=== PATIENT | male | born 1950 | race Caucasian/White ===

== ENCOUNTER 2017-11-11 09:51 | Emergency (ER) | payer OTHER ==
[~2017-11-11] VITALS: Ht 165.1 cm; Wt 68.2 kg
[2017-11-11 09:54] VITALS: TEMP 98.4
[2017-11-11] MEDS ORDERED: LOTENSIN20 MG PO (10:40)
[2017-11-11] MEDS ORDERED: PLAVIX 75MG TAB75 MG PO (10:41)
[2017-11-11] MEDS ORDERED: SYNTHROID0.05 MG/TA PO (10:41)
[2017-11-11] MEDS ORDERED: ZANTAC 150MG T150 MG PO (10:42)
[2017-11-11] MEDS ORDERED: FLOMAX 0.40.4 MG/CAP PO (10:42)
[2017-11-11] MEDS ORDERED: ZOCOR 10MG10 MG PO (10:43)
[2017-11-11] MEDS ORDERED: ATIVAN 0.50.5 MG/TAB PO (10:43)
[2017-11-11] MEDS ORDERED: SINGULAIR 110 MG/TAB (10:44)
[2017-11-11 10:45] LABS: BASO # 0.1 (0.0-0.2); EOS # 0.2 (0.0-0.7); EOS % 2.3 % (0-4.0); GRAN # 6.4 (1.4-6.5); GRAN % 69.1 % (42.2-75.2); HEMATOCRIT 46.8 % (42.0-52.0); HEMOGLOBIN 15.5 g/dl (13.5-18.0); LYMPH # 1.7 (1.2-3.4); LYMPH % 18.5 % (20.0-51.0); MEAN CELL VOLUME 87 fl (80.0-100.0); MEAN CORPUSCULAR HEMOGLOBIN 29 pg (27.0-31.0); MEAN CORPUSCULAR HGB CONC 33 g/dl (33.0-37.0); MEAN PLATELET VOLUME 9.6 fl (7.4-10.4); MONO # 0.8 (0.1-0.6); MONO % 8.5 % (1.7-9.3); PLATELET COUNT 220 K/mm3 (130-400); RED BLOOD COUNT 5.41 M/mm3 (4.20-5.60); REDCELL DISTRIBUTION WIDTH-CV 13.7 % (11.5-14.5)
[2017-11-11] MEDS ORDERED: ZYRTEC 10MG10 MG PO (10:45)
[2017-11-11] MEDS ORDERED: PULMICORT0.5 MG/2 M IH (10:46)
[2017-11-11 10:51] LABS: PROTHROMBIN TIME 11.3 SECONDS (9.7-12.8)
[2017-11-11 11:03] LABS: ALANINE AMINOTRANSFERASE 33 U/L (21-72); ALBUMIN 4.2 gm/dL (3.5-5.0); ALKALINE PHOSPHATASE 70 U/L (50-136); ANION GAP 10 mmol/L (7-16); AST,SGOT 30 U/L (15-37); BILIRUBIN,TOTAL 0.7 mg/dL (0.0-1.0); BLOOD UREA NITROGEN 14 mg/dL (9-20); CALCIUM 9.1 mg/dL (8.4-10.2); CARBON DIOXIDE 27 mmol/L (22-30); CHLORIDE 100 mmol/L (98-107); CREATININE, serum 0.96 mg/dL (0.66-1.25); GLUCOSE 103 mg/dL (74-106); SODIUM 137 mmol/L (137-145); TOTAL PROTEIN 7.2 gm/dL (6.4-8.2)
[2017-11-11 11:13] LABS: TROPONIN-I < 0.012 ng/mL (0.000-0.034)
[2017-11-11 14:30] VITALS: BP 116/70; PULSE 97
== END 2017-11-11 14:33 | disposition home or self-care (01) ==
LOC: COL.ER 09:51
PROVIDERS: Emergency Medicine
DX: R07.89 Other chest pain (principal); R42 Dizziness and giddiness; I10 Essential (primary) hypertension; E78.5 Hyperlipidemia, unspecified; K21.9 Gastro-esophageal reflux disease without esophagitis; Z86.73 Personal history of transient ischemic attack (TIA), and cerebral infarction without residual deficits; Z79.02 Long term (current) use of antithrombotics/antiplatelets; Z79.52 Long term (current) use of systemic steroids; Z98.890 Other specified postprocedural states
CPT/HCPCS: J2270; J2765

== ENCOUNTER 2020-01-21 08:58 | Inpatient (IN) | payer MEDICARE, OTHER ==
[~2020-01-21] VITALS: Ht 165.1 cm; Wt 61.0 kg
[~2020-01-21 08:58] MED LIST: 00186-0370-20; ADVIL 200MG TA200 MG PO; ASPIRIN; ATIVAN 0.50.5 MG/TAB PO; BLOOD PRESSURE MED; FLOMAX 0.40.4 MG/CAP PO; FLONASE NASAL S16 GM NS; LEVOTHYROXIN0.025 MG PO; LEVOXYL0.05 MG PO; LISINOPRIL20 MG PO; LOTENSIN20 MG PO; NORCO 325 MG-51 TAB PO; PLAVIX 75MG TAB75 MG PO; PREDNISONE20 MG PO; PRILOSEC 20MG20 MG PO; PULMICORT0.5 MG/2 M IH; SINGULAIR 110 MG/TAB; SYNTHROID0.05 MG/TA PO; TERAZOSIN5 MG PO; THYROID MED; ZANTAC 150MG T150 MG PO; ZOCOR 10MG10 MG PO; ZYRTEC 10MG10 MG PO; [UNRECOGNIZED DRUG - OTHER]
[2020-01-25] VITALS (301 sets, daily range): BP systolic 118–138; BP diastolic 63–76; PULSE 77–108; TEMP 98.7–99.1; O2SAT 87–100
[2020-01-25] MEDS ORDERED: VITAMIN D31000 I1 PO (06:19)
[2020-01-25] MEDS ORDERED: PLAVIX 75MG TAB75 MG PO (06:19)
[2020-01-25] MEDS ORDERED: 00186-0372-20 IH (06:19)
[2020-01-25] MEDS ORDERED: NEURONTIN300 MG/CAP PO (06:20)
[2020-01-25] MEDS ORDERED: SYNTHROID0.05 MG/TA PO (06:20)
[2020-01-25] MEDS ORDERED: PEPCID 20MG TAB20 MG PO (06:20)
[2020-01-25] MEDS ORDERED: ZOCOR 10MG10 MG PO (06:21)
[2020-01-25] MEDS ORDERED: FLOMAX 0.40.4 MG/CAP PO (06:21)
[2020-01-25] MEDS ORDERED: SINGULAIR 110 MG/TAB PO (06:21)
--- NOTE | 2020-01-25 06:31 | NUR ---
Patient arrives to [facility] via wheelchair. He is alert and oriented. He uses a walker and a RLE prosthesis to ambulate. Procedure is confirmed. He denies any questions and verbalizes understanding. He wears glasses and partial dentures (upper and lower)- all are placed in cases in patient's belongings bags. Patient states he was told by Dr. Copeland to stop taking his Plavix at his appointment on 01/20/2020. Notified Laci Osborne CRNA of stop date of Plavix and he states that he is aware. Also notified Laci Osborne CRNA that patient took his home dose of pepcid this AM at home and the EMAR dose was held. Notified Dr. Min Morales' PA of patient's last dose taken of Plavix as well. Patient's breath sounds are clear bilaterally to auscultation. Clear S1S2 heart tones heard. patient is tachycardic, rate 106 which the patient states is normal for him. +2 radial pulses bilaterally. PERRLA +2 pupils bilaterally. Patient has numbness/burning in the LLE. The LLE is red. CHG scrub is completed on the LLE as ordered.
--- NOTE | 2020-01-25 06:44 | NUR ---
Patient's belongings bags x2 (1 with clothes/dentures/cell phone/glasses, 1 with prosthesis) and personal walker taken to PACU with patient label on them at this time.
--- NOTE | 2020-01-25 21:00 | NUR ---
Patient to surgical room 323 at this time. He is alert and oriented and states he is at a tolerable pain level. His left leg is covered in a plaster cast and elevated on a pillow. Lung sounds are clear and heart sounds are normal/regular. He is not on any oxygen and levels on room air are 95%. Patient is oriented to room and call light and evening medications are administered. Will try to manage pain and promote sleep throughout the night. Will continue to monitor.
[2020-01-26 04:13] VITALS: BP 93/72; PULSE 98; TEMP 98.5
--- NOTE | 2020-01-26 05:22 | NUR ---
Patient has had a restful night. He woke up once with a pain level 7/10 and received oxycodone for this. There is drainage visible on the outside of the plaster cast. This drainage was marked with a marker and will be monitored. This RN elevated the extremity further to reduce drainage. Patient has remained afebrile and does not voice any other concerns beside pain management.
[2020-01-26 07:16] VITALS: BP 113/58; PULSE 105; TEMP 98.2
[2020-01-26] MEDS ORDERED: NORCO 325 MG-7.1 TAB PO (08:57)
--- NOTE | 2020-01-26 09:32 | NUR ---
Dolly Driver met with patient to discuss discharge planning. Patient lives in [place] with his , Nat (ph#[phone]) and sees Dr. Fisher for primary care. Patient obtains medications from [facility] pharmacy. Patient uses walkers and a tub transfer bench at home. Patient states he has a good set up and also has a prosthetic leg. Patient reports independence with ADLS and plans to return home upon discharge. Patient states his is his DPOA and that he has a living will. No needs identified at this time.
--- NOTE | 2020-01-26 11:35 | NUR ---
Pt discharged to home, assisted Pt to , escorted to entrance, assisted into vehicle. Pt left with spouse via private transportation.
--- NOTE | 2020-01-26 11:48 | NUR ---
First visit from the tobacco dipper. No needs right now.
== END 2020-01-26 11:37 | disposition home or self-care (01) | DRG 241 ==
LOC: ICU 01-25 05:27 → INPTSU 01-25 05:27 → SURG 01-25 07:30 → ICU 01-25 14:01 → SURG 01-25 21:15
PROVIDERS: ADMIT Orthopaedic Surgery
PROC: 0Y6J0Z1 Detachment at Left Lower Leg, High, Open Approach (ICD-10-PCS; principal; 2020-01-25 07:30)
DX: I99.8 Other disorder of circulatory system (principal); I73.9 Peripheral vascular disease, unspecified; J44.9 Chronic obstructive pulmonary disease, unspecified; I10 Essential (primary) hypertension; K21.9 Gastro-esophageal reflux disease without esophagitis; E03.9 Hypothyroidism, unspecified; Z86.73 Personal history of transient ischemic attack (TIA), and cerebral infarction without residual deficits
CPT/HCPCS: A9284; J0690; J1170; J1885; J2250; J2270; J2405; J2704; J3010; J7030; J7120

== ENCOUNTER 2021-06-07 10:29 | Outpatient (CLI) | payer MEDICARE, OTHER ==
[~2021-06-07] VITALS: Ht 165.1 cm; Wt 66.5 kg
[~2021-06-07 10:29] MED LIST changes: +00186-0372-20 IH; +NEURONTIN300 MG/CAP PO; +NORCO 325 MG-7.1 TAB PO; +PEPCID 20MG TAB20 MG PO; +SINGULAIR 110 MG/TAB PO; +VITAMIN D31000 I1 PO
[2021-06-07] MEDS ORDERED: PLAVIX 75MG TAB75 MG PO (11:10)
[2021-06-07] MEDS ORDERED: ATIVAN 0.50.5 MG/TAB PO (11:12)
[2021-06-07] MEDS ORDERED: LYRICA 150MG C150 MG PO (11:13)
[2021-06-07] MEDS ORDERED: PROTONIX 40MG T40 MG PO (11:13)
[2021-06-07 11:27] VITALS: BP 130/67; PULSE 98; TEMP 98.9
[2021-06-07] MEDS ORDERED: ZYRTEC 10MG10 MG PO (11:29)
[2021-06-07] MEDS ORDERED: FLOMAX 0.40.4 MG/CAP PO (11:29)
--- NOTE | 2021-06-07 14:27 | NUR ---
Pt waited for 2 hours post injection,denies signs or symtoms of reactions.Discharged via wheelchair by this nurse.
== END 2021-06-07 14:28 ==
LOC: EUO 10:29
DX: J45.50 Severe persistent asthma, uncomplicated (principal); Z79.899 Other long term (current) drug therapy
CPT/HCPCS: J2357

== ENCOUNTER 2021-06-21 12:47 | Outpatient (CLI) | payer MEDICARE, OTHER ==
[~2021-06-21] VITALS: Ht 165.1 cm; Wt 64.9 kg
[~2021-06-21 12:47] MED LIST changes: +LYRICA 150MG C150 MG PO; +PROTONIX 40MG T40 MG PO
[2021-06-21 13:11] VITALS: BP 132/70; PULSE 95; TEMP 98.6
== END 2021-06-21 13:30 | disposition home or self-care (01) ==
LOC: EUO 12:47
DX: J45.50 Severe persistent asthma, uncomplicated (principal); Z79.899 Other long term (current) drug therapy
CPT/HCPCS: J2357

== ENCOUNTER 2021-07-05 12:53 | Outpatient (CLI) | payer MEDICARE, OTHER ==
[2021-07-05 13:21] VITALS: BP 128/73; PULSE 95; TEMP 98.6
== END 2021-07-05 15:42 ==
LOC: EUO 12:53
DX: J45.50 Severe persistent asthma, uncomplicated (principal); Z79.899 Other long term (current) drug therapy
CPT/HCPCS: J2357

== ENCOUNTER 2021-07-19 12:39 | Outpatient (CLI) | payer MEDICARE, OTHER ==
[~2021-07-19] VITALS: Ht 165.1 cm; Wt 68.0 kg
[2021-07-19 13:16] VITALS: BP 128/73; PULSE 104; TEMP 98.5
== END 2021-07-19 13:59 | disposition home or self-care (01) ==
LOC: EUO 12:39
DX: J45.50 Severe persistent asthma, uncomplicated (principal); Z98.890 Other specified postprocedural states
CPT/HCPCS: J2357

== ENCOUNTER 2021-08-16 12:41 | Outpatient (CLI) | payer MEDICARE, OTHER ==
[~2021-08-16] VITALS: Ht 165.1 cm; Wt 68.8 kg
--- NOTE | 2021-08-16 12:53 | NUR ---
States that this is his last Xolair that Dr. Dean is going to change his medications and he doesnt think he will be back.
[2021-08-16 13:31] VITALS: BP 136/70; PULSE 114; TEMP 98.5
== END 2021-08-16 13:30 | disposition home or self-care (01) ==
LOC: EUO 12:41
DX: J45.50 Severe persistent asthma, uncomplicated (principal); Z79.899 Other long term (current) drug therapy
CPT/HCPCS: J2357